=== PATIENT | female | born 1985 | race African-American/Black ===

== ENCOUNTER 2020-11-27 22:18 | Observation (INO) | payer MEDICAID, OTHER ==
[~2020-11-27] VITALS: Ht 160 cm; Wt 79.8 kg
[2020-11-27] MEDS ORDERED: PNV1TABL76 MT (23:46)
[2020-11-27] MEDS ORDERED: ASPI-1160 MT (23:46)
[2020-11-27] MEDS ORDERED: LABE100T5 MT (23:46)
== END 2020-11-28 01:36 | disposition hospice, home (50) ==
LOC: 8 EST LDRP 22:18
PROVIDERS: ADMIT Obstetrics & Gynecology; ATTEND Obstetrics & Gynecology
DX: O16.3 Unspecified maternal hypertension, third trimester (principal); Z3A.35 35 weeks gestation of pregnancy; Z79.899 Other long term (current) drug therapy
CPT/HCPCS: 76815; 76818; G0378; 99281

== ENCOUNTER 2020-12-01 15:20 | Observation (INO) | payer OTHER ==
[~2020-12-01] VITALS: Ht 160 cm; Wt 79.8 kg
[~2020-12-01 15:20] MED LIST: ASPI-1160 MT; LABE100T5 MT; PNV1TABL76 MT
== END 2020-12-01 16:53 | disposition home or self-care (01) ==
LOC: 8 EST LDRP 15:20
PROVIDERS: ADMIT Obstetrics & Gynecology; ATTEND Obstetrics & Gynecology
DX: Z34.93 Encounter for supervision of normal pregnancy, unspecified, third trimester (principal); Z3A.36 36 weeks gestation of pregnancy
CPT/HCPCS: 59025; 76815; 76818; G0378; 99281

== ENCOUNTER 2020-12-05 20:02 | Observation (INO) | payer OTHER ==
[~2020-12-05] VITALS: Ht 160 cm; Wt 79.8 kg
== END 2020-12-05 23:03 | disposition home or self-care (01) ==
LOC: 8EST NSY 20:02 → 8 EST LDRP 20:39
PROVIDERS: ADMIT Obstetrics & Gynecology; ATTEND Obstetrics & Gynecology
DX: O11.3 Pre-existing hypertension with pre-eclampsia, third trimester (principal); Z3A.36 36 weeks gestation of pregnancy
CPT/HCPCS: 59025; 76815; 76818; G0378; 99281

== ENCOUNTER 2020-12-08 15:15 | Observation (INO) | payer OTHER | END 2020-12-08 17:55 | disposition home or self-care (01) | LOC: 8 EST LDRP 15:15 | PROVIDERS: ADMIT Obstetrics & Gynecology; ATTEND Obstetrics & Gynecology | DX: O16.3 Unspecified maternal hypertension, third trimester (principal); Z3A.37 37 weeks gestation of pregnancy | CPT/HCPCS: 59025; 76815; 76818; G0378 ==

== ENCOUNTER 2020-12-11 15:26 | Observation (INO) | payer MEDICAID, OTHER ==
[~2020-12-11] VITALS: Ht 160 cm; Wt 79.8 kg
[2020-12-26] MEDS ORDERED: PREN-182 PO (19:01)
[2020-12-26] MEDS ORDERED: ASPI-986 PO (19:01)
[2020-12-27] MEDS ORDERED: LABE100T5 PO (00:43)
[2020-12-29] MEDS ORDERED: IBUP-2030 PO (06:35)
== END 2020-12-11 18:39 | disposition home or self-care (01) ==
LOC: L&D 15:26 → 8 EST A/PP 15:57
PROVIDERS: ADMIT Obstetrics & Gynecology; ATTEND Obstetrics & Gynecology
DX: O62.9 Abnormality of forces of labor, unspecified (principal); O13.3 Gestational [pregnancy-induced] hypertension without significant proteinuria, third trimester; Z3A.37 37 weeks gestation of pregnancy
CPT/HCPCS: 76805; 76818; G0378; 99281